=== PATIENT | female | born 1990 | race Hispanic/Latino ===

== ENCOUNTER 2017-12-27 14:26 | Emergency (ER) | payer OTHER ==
[2017-12-27 15:36] VITALS: BMI 37.4
[2017-12-27 15:59] LABS: SQUAMOUS EPITHIAL 3 /hpf (0-5); URINE BACTERIA RARE (<OCC); URINE BILIRUBIN NEGATIVE (NEGATIVE); URINE BLOOD NEGATIVE (NEGATIVE); URINE CLARITY SLIGHTY-CLOUDY (Clear); URINE COLOR YELLOW (YELLOW); URINE GLUCOSE (UA) NEG (Normal); URINE LEUKOCYTE ESTERASE NEG Leu/uL (Negative); URINE PROTEIN NEGATIVE (NEGATIVE); URINE UROBILINOGEN 0.2-1.0 mg/dL (0.2-1.0)
--- NOTE | 2017-12-27 16:19 | OBHP ---
Datetime: 12/27/2017 15:30 IP Adm Impression: , intrauterine ; No Active Labor; Intact Membranes IP Chief Complaint Other: Pelvic pressure x 2-3d IP Admit Plan: Observation/Evaluation Admit Comment, IP Provider: 27yo IUP at 26w c/o pelvic pressure x 2-3d. She says that it's o n and off. Nothing relieves symptoms. No VB; +FM ROS: General: no weakness; no fatigue HEENT: no HARRIS; no visual dist Resp: no SOB; no cough CV: no CP; No palpitations GI: no N/V/D : No F/U/D PNC: Dr Flores: chart rev'd PMH: back pain/sciatica PSH: denies NKA PSoH: Denies smoking ETOH drugs POBGYNH: Chl treated; spont ab at 6weeks A; IUP at 26w pelvic pressure PLAN: check UA and CLM (sono ordered) Extremities - PN: Normal Abdomen - PN: Normal Back - PN: Normal Lungs - PN: Normal Heart - PN: Normal Thyroid - PN: Normal Neurologic - PN: Normal HEENT - PN: Normal General - PN: Normal FHR - Baseline A Provider: 135 Membranes, Provider: Intact Contraction Comments Provider: NONE Comments, ACOG Physical Exam: SSE : closed Pool Provider: Negative IP Hx Assessment: The History has been Reviewed and is Current EGA AdmitDate IP: 26.4 IP Chief Complaint: Other NICHD Variability Prov Fetus A: Moderate 6-25bpm NICHD Accel Fetus A IP Provider: 10X10 FHR Category Provider Fetus A: Category I Dilatation, Provider: 0 Genitourinary Exam: Normal DTRs - PN: Normal
--- NOTE | 2017-12-27 17:24 | US ---
PROCEDURE: OB Pelvic Ultrasound HISTORY: pelvic pressure 26w LMP: 06/24/2017 COMPARISON: None available. FINDINGS: UTERUS: Placenta: Anterior Presentation: Cephalic BPD: 6.8 cm compatible with estimated gestational age of 27 weeks, 2 days HC: 24.1 cm compatible with estimated gestation age of 27 weeks, 1 day Heart rate: 141 bpm. age (Ultrasound estimated): 26 weeks, 5 days Diane-gestational hemorrhage: None. Date of delivery (Ultrasound estimated) : 03/30/2018 CERVIX: Measures 3.7 cm. Long and closed. No cervical abnormality seen. RIGHT OVARY: Not visualized LEFT OVARY: Not visualized FREE FLUID: None. OTHER FINDINGS: None. IMPRESSION: Single live intrauterine gestation with average ultrasound age of 26 weeks, 5 days. heart rate 141 beats per minute. Cervix long and closed.
[2017-12-29 15:46] VITALS: BP 104/69; PULSE 95; TEMP 98.1
== END 2017-12-27 17:18 | disposition home or self-care (01) ==
LOC: H.EROB2 14:26
DX: O26.92 Pregnancy related conditions, unspecified, second trimester (principal); R10.2 Pelvic and perineal pain; Z3A.26 26 weeks gestation of pregnancy

== ENCOUNTER 2018-02-23 19:45 | Emergency (ER) | payer OTHER ==
[2018-02-23 22:39] VITALS: BMI 37.5
[2018-02-23] MEDS: Lactated Ringer's 1,000 ML IV SCH (23:07)
[2018-02-24] MEDS: Lactated Ringer's 1,000 ML IV SCH (00:16)
--- NOTE | 2018-02-24 07:23 | OBHP ---
Datetime: 02/23/2018 22:21 IP Adm Impression: , intrauterine IP Admit Plan: Observation/Evaluation; Discharge home Admit Comment, IP Provider: 27 yo at 34+5 wks w/ EDC 03/31/4018, c/o feeling crampy earlier today and then cramps recurred at 3pm, still feels crampy, on and off, denies dysuria, VB, LOF and re ports FM. Pt denies recent sex. Pt received PNC w/ [facility] w/ Dr. Otto. PMH: Healthy PSH: D_C 2012 Meds: PNVs All: NKDA Soc hx: Pt denies tobacco, alcohol, and illicit drugs [employer] hx: menarche at 11 yo, reg periods, h/o chlamydia w/ this preg, denies abn paps OB hx: 06/2013 SAB, D_C PE: AFVSS Gen'l: Pt appears comfortable lying in bed Chest: Lungs CTA b/l Abd: soft, NT, gravid Ext: NT VE: closed/ long/ soft/ posterior at 9:45 pm EFM: as above [place]: as above A/P: 27 yo at 34+5 wks w/ ctxns. Pt given a pitcher of water to drink. Urine cx sent. N ST reactive. Pt continued to feel uncomfortable over night. Pt given IVF over night and feels better this am. Pt discharged home and will f/u at the office on 02/26/2018. Abdomen - PN: Normal Back - PN: Normal Lungs - PN: Normal Heart - PN: Normal Neurologic - PN: Normal HEENT - PN: Normal General - PN: Normal FHR - Baseline A Provider: 120's Membranes, Provider: Intact Contraction Comments Provider: Q2 EGA AdmitDate IP: 34.6 Vital Signs Provider: Reviewed IP Chief Complaint: Uterine contractions NICHD Variability Prov Fetus A: Moderate 6-25bpm NICHD Accel Fetus A IP Provider: 15X15 FHR Category Provider Fetus A: Category I NICHD Decel Fetus A IP Provider: None Dilatation, Provider: 1 Effacement, Provider: 0 Station, Provider: -3 Genitourinary Exam: Normal
--- NOTE | 2018-02-24 07:28 | OBDCSUM ---
Datetime: 02/24/2018 07:20 Discharged to, Provider: Home Discharged to, Provider: Home Follow up at, Provider: Dr. Otto Disch Instr Activity: Normal activity Disch Instr Diet: Regular Discharge Instructions, Provider: Routine instructions given Discharge Time: 02/24/2018 07:20 Follow up in weeks, Provider: 02/26/18 Follow up in weeks, Provider: 2 days Disch Referrals: None Disch Activity Restrictions: No exercising Discharge Diagnosis Prov Other: contractions at 35 wks
[2018-02-24 13:08] VITALS: BP 126/70; PULSE 75; O2SAT 99
== END 2018-02-23 19:52 | disposition home or self-care (01) ==
LOC: H.EROB2 19:45
DX: O26.93 Pregnancy related conditions, unspecified, third trimester (principal); R10.2 Pelvic and perineal pain; Z3A.34 34 weeks gestation of pregnancy
CPT/HCPCS: 87086; 99283; J7120

== ENCOUNTER 2018-03-19 13:09 | Emergency (ER) | payer OTHER ==
--- NOTE | 2018-03-19 15:55 | OBHP ---
Datetime: 03/19/2018 15:25 IP Adm Impression: Term, intrauterine IP Chief Complaint Other: Back pain IP Admit Plan: Observation/Evaluation; Discharge home Admit Comment, IP Provider: HPI: Isha is a 27yo at 38.2 weeks who presents to triage with co mplaint of intermittent lower back pain as well as low abdominal cramping. The pain began 2-3 days ag o with infrequent low back pain approximately every 30-60 minutes and has remained the same since the n. She became concerned last night when the pain woke her up 3-4 times throughout the night. The pain /contractions have not increased in frequency or duration. Denies vaginal bleeding or LOF. Good movement. ROS: as above, otherwise negative problems: chlamydia infection during , appropriately treated PMH Denies PSH Denies Medications PNV Allergies NKDA Social History Denies tobacco, alcohol or drug use OBJECTIVE See exm section labs unavailable A/P: 27yo at 38.2 weeks here for rule out labor. During her triage evaluation she had infrequ ent contractions and a cervical exam was consistent with a dilation of approximately 1cm, which was t he same as her exam in the office last week. At this time she may be entering latent labor but there is no indication for admission. Reviewed return precautions including labor, PROM and vaginal bleedin g. Patient was in agreement with the discharge plan and has her next clinic appointment tomorrow. Saranya Zhang MD OB Fellow OB attending addendum: Patient seen and examined by me. Agree with above assessment and plan. Labor precautions. kick counts. Follow-up with Dr. Otto scheduled. Extremities - PN: Normal Abdomen - PN: Normal Lungs - PN: Normal Heart - PN: Normal Neurologic - PN: Normal HEENT - PN: Normal General - PN: Normal IP Fetus A Comments: Reactive NST FHR - Baseline A Provider: 120 Contraction Comments Provider: Sporadic, about 1 every 15-30 min Gestation - Est Wks by US: 38.2 EGA AdmitDate IP: 38.2 Vital Signs Provider: Reviewed; Within Normal Limits IP Chief Complaint: Uterine contractions NICHD Variability Prov Fetus A: Moderate 6-25bpm NICHD Accel Fetus A IP Provider: 15X15 NICHD Decel Fetus A IP Provider: None Dilatation, Provider: 1 Effacement, Provider: 10 Station, Provider: -3
[2018-03-19 19:22] VITALS: BP 124/71; PULSE 82; TEMP 99
== END 2018-03-19 14:55 | disposition home or self-care (01) ==
LOC: H.EROB2 13:09
DX: O47.1 False labor at or after 37 completed weeks of gestation (principal); O26.93 Pregnancy related conditions, unspecified, third trimester; M54.5 Low back pain; R10.2 Pelvic and perineal pain; Z3A.38 38 weeks gestation of pregnancy

== ENCOUNTER 2018-03-20 14:30 | Inpatient (IN) | payer OTHER ==
[2018-03-20] MEDS: Lactated Ringer's 1,000 ML IV SCH (16:15)
[2018-03-20 16:19] VITALS: BMI 38.4
[2018-03-20] MEDS ORDERED: Lactated Ringer's 1,000 ML IV ONE (16:19)
[2018-03-20 17:28] LABS: BASO % 0.3 % (0.0-2.0); EOS # 0.2 K/uL (0.0-0.7); EOS % 1.4 % (0.0-4.0); HEMOGLOBIN 13.3 g/dL (12.0-16.0); LYMPH # 2.6 K/uL (1.0-4.3); LYMPH % 21.9 % (20.0-40.0); MEAN CELL VOLUME 89.7 fl (81.0-99.0); MEAN CORPUSCULAR HEMOGLOBIN 29.9 pg (27.0-31.0); MEAN CORPUSCULAR HGB CONC 33.3 g/dL (33.0-37.0); MEAN PLATELET VOLUME 9.1 fl (7.2-11.7); MONO # 0.6 K/uL (0.0-0.8); MONO % 4.7 % (0.0-10.0); NEUT # 8.5 K/uL (1.8-7.0); NEUT % 71.7 % (50.0-75.0); RBC 4.43 Mil/uL (3.80-5.20); RED CELL DISTRIBUTION WIDTH 13.4 % (11.5-14.5); WHITE BLOOD COUNT 11.9 K/uL (4.8-10.8)
[2018-03-20] MEDS ORDERED: OXYTOCIN/0.9 % NS 20 UNIT/1,000 ML BAG IV SCH (20:00)
[2018-03-20] MEDS ORDERED: Oxytocin 30 UNIT 30 UNITS/500 ML BAG IV ONE (20:00)
[2018-03-21] MEDS ORDERED: Fentanyl/Bupivacaine HCl 250 ML EPI ONE (00:34)
[2018-03-21] MEDS: Lactated Ringer's 1,000 ML IV SCH (01:30)
[2018-03-21] MEDS ORDERED: OXYTOCIN/0.9 % NS 20 UNIT/1,000 ML BAG IV SCH ×2 (06:00→07:45)
[2018-03-21] MEDS ORDERED: OXYTOCIN/0.9 % NS 20 UNIT/1,000 ML BAG IV ONE (06:07)
[2018-03-21] MEDS ORDERED: Benzocaine/Menthol SPRAY TOP PRN ×2 (06:11→06:41)
[2018-03-21] MEDS ORDERED: Oxycodone/Acetaminophen 5/325 mg Tab PO PRN ×3 (06:11→07:45)
[2018-03-21] MEDS ORDERED: Oxytocin 30 UNIT 30 UNITS/500 ML BAG IV ONE (06:41)
[2018-03-21] MEDS ORDERED: Lactated Ringer's 1,000 ML IV SCH (07:45)
--- NOTE | 2018-03-21 08:18 | OBADHP ---
Datetime: 03/20/2018 16:44 Admit Comment, IP Provider: 27 y/o , 38.3 wks based on 10w3d US with MARCELL of 03/31/18 presents to [facility] with suspected rupture of membrane. Patient came to [facility] with back pain yesterday. Patient no tioced gush of fluids coming out at 6:30 am this morning while going to bathroom. Fluid was clear and watery. She reports fluid is more with standing position or coughing. Denies any vaginal bleed. Repo rts increasing frequency and intensity of uterrine contraction. Denies any dysuria, nausea, vomiting, diarrhea or dizziness. ROS: as above, otherwise negative PNC: Dr. Otto course: H/O chlamydia 10/23 trtated with Azithromycin. PMH: Denies PSH:Denies Medications: PNV Allergies: NKDA Social History: Denies tobacco, alcohol or drug use PE General: Well no acute distress heart: RRR, S1S2 present Lungs: CTA B/L, No wheeze Abdomen: Gravid, NT Ext: No calf tenderness, Trace pedal edema SSE: + Pooling, grossly ruptured membrane, No avtive vaginal bleeding SVE: 1/50%/soft/-1 A/P:27 y/o , 38.3 wks based on 10w3d US with MARCELL of 03/31/18 presents to [facility] with suspected rupture of membrane. - Term with reptured membranes - EFM and toco monitoring - Cervix 1/50%/-1 - Membrane ruptured - COntractions becoming more regular - Admit to unit - Monitor for cervical change in 1 hr, Consider oxytocin induction - NST reactive: Moderate variability, accelerations, No decels Km Grewal PGY1 FHR - Baseline A Provider: 120 Membranes, Provider: Ruptured Comments, ACOG Physical Exam: General: Well no acute distress heart: RRR, S1S2 present Lungs: CTA B/L, No wheeze Abdomen: Gravid, NT Ext: No calf tenderness, Trace pedal edema SSE: + Pooling, grossly ruptured membrane, No avtive vaginal bleeding SVE: 1/50%/soft/-1 IP Hx Assessment: The History has been Reviewed and is Current Vital Signs Provider: Reviewed; Within Normal Limits IP Chief Complaint: Uterine contractions; Suspected ruptured membranes NICHD Variability Prov Fetus A: Moderate 6-25bpm NICHD Accel Fetus A IP Provider: 15X15 FHR Category Provider Fetus A: Category I NICHD Decel Fetus A IP Provider: None Dilatation, Provider: 1 Effacement, Provider: 50 Station, Provider: -1 EGA AdmitDate IP: 38.3 IP Adm Impression: Term, intrauterine ; Ruptured Membranes IP Admit Plan: Admit to unit Datetime: 03/20/2018 16:27 Extremities - PN: Normal Abdomen - PN: Normal Back - PN: Normal Breast - PN: Normal Lungs - PN: Normal Heart - PN: Normal Thyroid - PN: Not Done Neurologic - PN: Normal HEENT - PN: Normal General - PN: Normal Presentation-Admit: Vertex Contraction Comments Provider: Irregular Pool Provider: Positive Datetime: 03/19/2018 15:25 IP Chief Complaint Other: Back pain IP Fetus A Comments: Reactive NST Gestation - Est Wks by US: 38.2 Datetime: 02/23/2018 22:21 Genitourinary Exam: Normal Datetime: 12/27/2017 15:30 DTRs - PN: Normal
--- NOTE | 2018-03-21 08:24 | OBDS ---
DELIVERY PERSONNEL Delivery Doctor: Kyrie Palomo MD Plant Specialist: Jaja Campos RN Anesthesiologist: Dr. Duff MATERNAL INFORMATION Delivery Anesthesia: Local; Epidural Medications in Delivery: Pitocin 30 mu/500 mL NS Estimated Blood Loss (ml): QBL- 124 Placenta Cultured: No Maternal Complications: None Provider Comments: Normal spontaneous vaginal delivery. Patient delivered viable infant male with Apgars of 9 and 9 at one and 5 minutes respectively. Jennifer centa delivered spontaneously. Laceration repaired, as above. Uterus firm and appropriately hemostati c following delivery. No complication. Patient tolerated delivery and repair well. Estimated blood lo ss 300 mL. LABOR SUMMARY EDC: 03/31/2018 00:00 No. Babies in Womb: 1 Attempted: No Labor Anesthesia: Epidural LABOR INFORMATION Reason for Induction: Not Applicable Onset of Labor: 03/21/2018 04:45 Complete Dilatation: 03/21/2018 04:45 Oxytocin: Augmentation Group B Beta Strep: Not Done Antibiotics # of Doses: 0 Antibiotics Time of Last Dose: 0 Steroids Given: None Reason Steroids Not Administered: Not Applicable MEMBRANES Membranes Rupture Method: Spontaneous Rupture of Membranes: 03/20/2018 06:30 Length of Rupture (hrs): 23.00 Amniotic Fluid Color: Clear Amniotic Fluid Amount: Moderate Amniotic Fluid Odor: Normal STAGES OF LABOR Stage 1 hrs: 0 Stage 1 min: 0 Stage 2 hrs: 0 Stage 2 min: 45 Stage 3 hrs: 0 Stage 3 min: 5 Total Time in Labor hrs: 0 Total Time in Labor min: 50 VAGINAL DELIVERY Episiotomy: None Laceration Extension: First Degree Laceration Type: Perineal Laceration Repair: Yes Laceration Repair Note: First-degree left lateral vaginal laceration and first-degree midline perone al laceration. Area was treated with 1% lidocaine. Lacerations repaired with 2. 0 repeat without comp lication. Patient tolerated repair well. Initial Vag Sponge Count: 5 Final Vag Sponge Count: 5 Initial Vag Sharps Count: 5 Final Vag Sharps Count: 5 Sponge Count Correct: Yes Sharps Count Correct: Yes BABY A INFORMATION Infant Delivery Date/Time: 03/21/2018 05:30 Method of Delivery: Vaginal Born in Route : No : N/A Forceps: N/A Vacuum Extraction: N/A Shoulder Dystocia : No SHOULDER DYSTOCIA BABY A Delivery Date/Time: 03/21/2018 05:30 PRESENTATION/POSITION BABY A Presentation: Cephalic Cephalic Presentation: Vertex Breech Presentation: N/A PLACENTA INFORMATION BABY A Placenta Delivery Time : 03/21/2018 05:35 Placenta Method of Delivery: Spontaneous Placenta Status: Delivered SCORES BABY A Heart Rate 1 min: >100 bpm Resp Effort 1 min: Good Cry Reflex Irritability 1 min: Cough or Sneeze or Pulls Away Muscle Tone 1 min: Active Motion Color 1 min: Body [place], Extremities Blue Resuscitation Effort 1 min: N/A SCORE 1 MIN: 9 Heart Rate 5 min: >100 bpm Resp Effort 5 min: Good Cry Reflex Irritability 5 min: Cough or Sneeze or Pulls Away Muscle Tone 5 min: Active Motion Color 5 min: Body [place], Extremities Blue Resuscitation Effort 5 min: N/A SCORE 5 MIN: 9 INFANT INFORMATION BABY A Gestational Age at Delivery: 38.4 Gestational Status: Term Infant Outcome : Liveborn Condition : Stable Infant Sex: Female IDENTIFICATION/MEDS BABY A ID Band Number: [id number] ID Band Location: Left Leg; Left Arm WEIGHT/LENGTH BABY A Infant Birthweight (gms): 2895 Infant Weight (lb): 6 Infant Weight (oz): 6 CORD INFORMATION BABY A No. Cord Vessels: 3 Nuchal Cord : N/A Cord Blood Taken: Yes Infant Suction: None ASSESSMENT BABY A Complications: None Physical Findings at Delivery: Within Normal Limits Respirations: Appears Normal Hazardous Waste Remover/ALS Called : No Transferred To: Remains with Mother
[2018-03-21] MEDS: Benzocaine/Menthol SPRAY TOP PRN (21:41)
[2018-03-22 08:10] LABS: BASO % 0.4 % (0.0-2.0); EOS # 0.2 K/uL (0.0-0.7); EOS % 1.7 % (0.0-4.0); HEMOGLOBIN 12.1 g/dL (12.0-16.0); LYMPH # 2.8 K/uL (1.0-4.3); LYMPH % 26.7 % (20.0-40.0); MEAN CELL VOLUME 91.1 fl (81.0-99.0); MEAN CORPUSCULAR HEMOGLOBIN 30.6 pg (27.0-31.0); MEAN CORPUSCULAR HGB CONC 33.7 g/dL (33.0-37.0); MEAN PLATELET VOLUME 9.2 fl (7.2-11.7); MONO # 0.5 K/uL (0.0-0.8); MONO % 4.7 % (0.0-10.0); NEUT # 6.9 K/uL (1.8-7.0); NEUT % 66.5 % (50.0-75.0); NRBC % 0.1 % (0.0-0.0); RBC 3.93 Mil/uL (3.80-5.20); RED CELL DISTRIBUTION WIDTH 13.5 % (11.5-14.5); WHITE BLOOD COUNT 10.3 K/uL (4.8-10.8)
[2018-03-23] MEDS: Benzocaine/Menthol SPRAY TOP PRN (08:24)
[2018-03-23 18:10] VITALS: BP 125/73; PULSE 68; RESP 20; TEMP 98.5; O2SAT 99
--- NOTE | 2018-03-23 19:27 | OBDCSUM ---
Datetime: 03/23/2018 11:02 Discharged to, Provider: Home Follow up at, Provider: OB Disch Instr Activity: Normal activity; May be up to bathroom; May be up for meals; May Shower Disch Instr Diet: Regular Discharge Diet restrict Prov: none Discharge Instructions, Provider: Routine instructions given Discharge Diagnosis, Provider: Term Delivered Discharge Time: 03/23/2018 11:05 Follow up in weeks, Provider: 4-6weeks Disch Referrals: None Contraception discussed, Prov: Yes Disch Activity Restrictions: Minimize walking; Minimize stair-climbing; No sexual activity; Nothing in vagina - [place], tampons, douche Contraception after Delivery: Undecided
--- NOTE | 2018-03-23 19:27 | OBPPN ---
Datetime: 03/23/2018 19:25 PP Pain Prov: Within normal limits PP Nausea Prov: Denies PP Flatus Prov: Yes PP Breasts Prov: Normal PP Heart Prov: Normal PP Lungs Prov: Normal PP Abdomen/Uterus Prov: Normal PP Lochia Prov: Normal PP Vulva/Perineum Prov: Normal PP CVA Tenderness Prov: Normal PP Extremities Prov: Normal PP C/S Incision Prov: Not Applicable PP Progress Prov: Normal PP Comments Phys Exam Prov: Abdomen soft, nontender, nondistended Uterus firm, below umbilicus No deep calf tenderness bilaterally PP Impression Prov: Normal progression PP Plan Prov: Discharge PP Progress Note Prov: day #2 status post normal spontaneous vaginal delivery, patient re covering well Patient discharged home today with instructions Follow-up in office in 6 weeks for visit IP PP Procedures: None Vital Signs Provider PP: Reviewed; Within Normal Limits Datetime: 03/22/2018 10:03 PP BM Prov: No
== END 2018-03-23 12:05 | disposition home or self-care (01) | DRG 775 ==
LOC: H.EROB2 14:35 → H.L&D 16:19 → H.OB/GYN 03-21 19:48
PROVIDERS: ADMIT Obstetrics & Gynecology; ATTEND Obstetrics & Gynecology
PROC: 10E0XZZ Delivery of Products of Conception, External Approach (ICD-10-PCS; principal; 2018-03-21)
PROC: 0HQ9XZZ Repair Perineum Skin, External Approach (ICD-10-PCS; 2018-03-21)
DX: O70.0 First degree perineal laceration during delivery (principal); Z37.0 Single live birth; Z3A.38 38 weeks gestation of pregnancy